=== PATIENT | female | born 1950 | race Caucasian/White ===

== ENCOUNTER 2022-04-18 17:23 | Emergency (ER) | payer OTHER ==
[~2022-04-18] VITALS: Ht 170.2 cm; Wt 136.1 kg
[2022-04-18 17:28] VITALS: BP_SYST 164
--- NOTE | 2022-04-18 17:32 | NUR ---
Placed in room 8 . Placed on traffic monitor specialist, blood pressure machine and pulse oximeter. To gown for exam. Side rails up. Report given to LUKE MCDONNELL.
--- NOTE | 2022-04-18 17:40 | NUR ---
PATIENT BROUGHT IN FOR COVID 19 POSITIVE A FEW DAYS AGO AND WAS TREATED WITH ANTIVIRAL AT [facility]. COMPLAINING OF NAUSEA, VOMITING, BODY ACHES AND PAIN. PATIENT REPORTS HAS NAUSEA BODY ACHES AND PAIN. PAIN 4/10. NO ACUTE DISTRESS NOTED AT THIS TIME
[2022-04-18] MEDS ORDERED: NACL 0.9% 1,000 ML IV ONE (18:15)
[2022-04-18] MEDS ORDERED: HALOPERIDOL LACTATE 5 MG/ML VIAL IVP ONE (18:30)
[2022-04-18] MEDS ORDERED: DIPHENHYDRAMINE INJ 50 MG/ML VIAL IVP ONE (18:30)
[2022-04-18] MEDS ORDERED: ENALAPRILAT DIHYDRATE 1.25 MG/ML VIAL IVP ONE ×2 (18:30→22:15)
--- NOTE | 2022-04-18 18:32 | NUR ---
# 22 gauge angiocath placed to RT AC. Use of asceptic technique. Opsite placed over site. Blood return noted. Blood for lab drawn from site. Flushed with 10 cc of normal saline. No evidence of infiltration noted. Patient tolerated well.
[2022-04-18 18:36] LABS: BASOPHILS % (AUTO) 0.7 % (0.0-2.0); EOSINOPHILS # (AUTO) 0.1 K/uL (0.0-0.4); EOSINOPHILS % (AUTO) 0.8 % (0.0-4.0); HEMATOCRIT 41.5 % (36-48); LYMPHOCYTES # (AUTO) 1.2 K/uL (1.0-5.5); LYMPHOCYTES % (AUTO) 18.9 % (20.5-51.5); MEAN CORPUSCULAR HEMOGLOBIN 29 pg (27-31); MEAN CORPUSCULAR HGB CONC 34 % (32-36); MEAN CORPUSCULAR VOLUME 87 fL (79.0-98.0); MONOCYTES # (AUTO) 0.4 K/uL (0.0-1.0); MONOCYTES % (AUTO) 7.2 % (1.7-9.3); NEUTROPHILS # (AUTO) 4.5 K/uL (1.8-7.7); NEUTROPHILS % (AUTO) 72.4 % (40.0-70.0); PLATELET COUNT (AUTO) 226 K/uL (130-430); RED CELL DISTRIBUTION WIDTH 14.9 % (9.0-15.0); WHITE BLOOD COUNT (AUTO) 6.2 K/uL (4.8-10.8)
--- NOTE | 2022-04-18 18:41 | NUR ---
# 16 FR Ferguson catheter with use of sterile technique. Immediate return of 250 cc CLEAR YELLOW urine noted. Bedside drainage bag placed below level of bladder. Urine sample collected and sent to lab. Pt tolerated procedure WELL Patient unable to toilet self.
[2022-04-18 18:44] LABS: CALCIUM 8.4 mg/dL (8.4-11.0); CREATININE 0.85 mg/dL (0.55-1.30)
[2022-04-18 18:50] LABS: ALBUMIN 3.3 g/dL (3.4-4.8); TOTAL BILIRUBIN 0.6 mg/dL (0.0-1.0)
--- NOTE | 2022-04-18 18:50 | NUR ---
COVID SWAB PERFORMED AT BEDSIDE AND SENT TO LAB
[2022-04-18 19:06] LABS: BILIRUBIN,URINE 2+ (NEGATIVE); COLOR,URINE YELLOW (YELLOW); GLUCOSE,URINE NEGATIVE (NEGATIVE); KETONES,URINE 3+ (NEGATIVE); LEUKOCYTE ESTERASE ,URINE NEGATIVE (NEGATIVE); NITRITE, URINE NEGATIVE (NEGATIVE); PROTEIN URINE 1+ (NEGATIVE)
[2022-04-18 19:10] LABS: BLOOD, URINE TRACE (NEGATIVE); CLARITY/URINE SLIGHTLY CLOUDY (CLEAR)
[2022-04-18 19:14] LABS: BACTERIA,URINE FEW /HPF (None Seen); RBC,URINE NONE SEEN /HPF (0-3); WBC,URINE 0-3 /HPF (0-3)
[2022-04-18 19:15] LABS: MUCUS,URINE None Seen /LPF (None Seen)
[2022-04-18] MEDS ORDERED: HYDROcodone/ACETAMIN 5-325 MG TAB (NORCO/ VICODIN) PO ONE (20:00)
[2022-04-18] MEDS ORDERED: ONDANSETRON HCL 4 MG/2 ML VIAL IVP ONE (20:00)
--- NOTE | 2022-04-18 20:00 | NUR ---
PT HAS SINGLETON DUE TO GENERALIZE WEAKNESS. PT HAS HISTORY OF DM, FIBROMYLAGIA, HTM. SKIN IS INTACT. PT IS OBESE. RESTING IN THE BED.
--- NOTE | 2022-04-18 20:06 | NUR ---
PT IS A&O X 4. NO RESPIRATORY DITRESS NOTED. SHE COMPLAINED ABOUT GENERALIZE PAIN DUE TO HER HISTORY OF FIBROMYLAGIA AND FELT NAUSEATED. TALKED TO THE ER DOCTOR AND PRESCRIBE ZOFRAN AND NORCO 5.
--- NOTE | 2022-04-18 20:14 | NUR ---
DR MOLINA CALL TO DR BALL RE: TRANSFER. TRANSFER APPROVED TO [facility]
--- NOTE | 2022-04-18 21:07 | NUR ---
PT FELLS BETTER WITH THE MEDS EARLIER. PAIN IS REDUCED 1/10. NO SIGN OF DITRESS NOTED.
[2022-04-19] MEDS ORDERED: hydrALAZINE HCL 20 MG/ML VIAL IVP ONE (03:45)
[2022-04-19 06:39] VITALS: BP_SYST 161
--- NOTE | 2022-04-19 06:43 | NUR ---
Patient to be transferred to [facility]. Is being transferred due to higher level of care. Receiving facility has accepting physician and available space. ER physician has signed transfer form. Patient or responsible alliance party has agreed to transfer and signed form. Patient belongings inventoried and will be sent with patient. Copy of nursing notes, lab reports, EKG, Physicians Orders and X-rays to be sent with patient. Report called to franki at receiving facility. Receiving physician is dr [email or web address]. 1999 ambulance service has been called for transfer. ETA is [id number].
== END 2022-04-19 06:23 | disposition short-term general hospital (02) ==
LOC: SED 17:23
DX: U07.1 COVID-19 (principal); R11.2 Nausea with vomiting, unspecified; R53.1 Weakness; I10 Essential (primary) hypertension; Z88.1 Allergy status to other antibiotic agents; Z88.2 Allergy status to sulfonamides; Z88.6 Allergy status to analgesic agent; Z88.8 Allergy status to other drugs, medicaments and biological substances; Z79.899 Other long term (current) drug therapy
CPT/HCPCS: 99285; 96374; 96375 ×2; 71045; 96361; 87426; 80053; 81000; 85025; 87040; 36415; 93005; 83605; 96376; J1200; J1630; J2405; J7030; J0360